=== PATIENT | male | born 1995 | race Caucasian/White ===

== ENCOUNTER 2016-06-06 13:11 | Emergency (ER) | payer MEDICAID ==
[~2016-06-06] VITALS: Ht 182.9 cm; Wt 77.0 kg
[2016-06-06] MEDS ORDERED: KETOROLAC 60MG/2ML VIAL IM STA (14:25)
[2016-06-06] MEDS ORDERED: ONDANSETRON 4MG ODT PO STA (14:25)
[2016-06-06 14:55] LABS: BASOPHILS % 0.4 % (0.0-2.0); HEMATOCRIT. 45.8 % (42.0-52.0); HEMOGLOBIN. 15.6 g/dL (14.0-18.0); LYMPHOCYTES % 11.5 % (20.0-50.0); MEAN CORPUSCULAR HEMOGLOBIN 30.3 pg (28.0-32.0); MEAN CORPUSCULAR HGB CONC 34.2 g/dL (31.0-37.0); MEAN CORPUSCULAR VOLUME 88.8 fL (80.0-94.0); MEAN PLATELET VOLUME 7.8 fl (7.4-10.4); MONOCYTES % 8.9 % (2.0-8.0); NEUTROPHILS % 79.2 % (40.0-76.0); PLATELET 215 x1000/uL (130-400); RED BLOOD CELL COUNT 5.16 mill/uL (4.7-6.1); RED CELL DISTRIBUTION WIDTH 13.5 % (11.6-14.6); WHITE BLOOD COUNT 15.2 x1000/uL (4.5-11.0)
[2016-06-06 15:12] LABS: ALANINE AMINOTRANSFERASE 21 IU/L (13-61); ALBUMIN 4.1 g/dL (3.4-5.0); ANION GAP 11; CALCIUM 9.7 mg/dL (8.5-10.1); CARBON DIOXIDE 30 mEq/L (21-32); CHLORIDE 103 mEq/L (98-107); INDEX HEMOLYSI 1 (1-3); INDEX ICTERIC 1 (1-4); INDEX LIPEMIC 1 (1-3); LIPASE 763 IU/L (73-393); UREA NITROGEN BLOOD 12 mg/dL (7-21); eGFR > 60 mL/min (>60)
[2016-06-06 16:05] LABS: CLARITY URINE CLEAR (CLEAR); COLOR URINE YELLOW (YELLOW); GLUCOSE URINE NEGATIVE (NEGATIVE); KETONES URINE 3+ (NEGATIVE); LEUKOCYTE ESTERASE URINE NEGATIVE (NEGATIVE); NITRITE URINE NEGATIVE (NEGATIVE); OCCULT BLOOD URINE NEGATIVE (NEGATIVE); PROTEIN URINE NEGATIVE (NEGATIVE); SPECIFIC GRAVITY URINE 1.024 (1.005-1.030)
[2016-06-06] MEDS ORDERED: SODIUM CHLORIDE 0.9% 1,000 ML IV ONE (16:45)
[2016-06-06 18:36] VITALS: BP 120/73
[2016-06-09 04:37] LABS: CHLAMYDIA TRACHOMATIS NAA Negative (Negative); NEISSERIA GONORRHOEAE NAA Negative (Negative)
== END 2016-06-06 18:36 | disposition home or self-care (01) ==
LOC: ER 13:11
DX: K85.90 Acute pancreatitis without necrosis or infection, unspecified (principal)
CPT/HCPCS: 36415; 76705; 80053; 81003; 83690; 85025; 87491; 87591; 96360; 96372; 99285; J1885; J7030; Q0162; Z7610